=== PATIENT | female | born 1945 | race Asian ===

== ENCOUNTER 2019-04-01 18:14 | Emergency (ER) | payer MEDICARE, OTHER ==
[~2019-04-01] VITALS: Ht 170.2 cm; Wt 77.3 kg
[~2019-04-01 18:14] MED LIST: ACAR50TA11 PO; BENA10TA12 PO; GLIP10 PO; HYDR10TA31 PO; HYDR25TA PO; LABE100T8 PO; METF-960 PO; OMEP20 PO; SITA25 PO
[2019-04-01] MEDS ORDERED: ATOR10TA84 PO (18:19)
[2019-04-01 18:31] LABS: GLUCOSE,POINT OF CARE 233 MG/DL (70-110)
[2019-04-01] MEDS ORDERED: KETOROLAC TROMETHAMINE 30 MG/ML VIAL IM ONE (21:15)
[2019-04-01 22:00] VITALS: BP 128/70
== END 2019-04-01 22:20 | disposition home or self-care (01) ==
LOC: EMS 18:15
DX: M17.12 Unilateral primary osteoarthritis, left knee (principal); E11.9 Type 2 diabetes mellitus without complications; E78.00 Pure hypercholesterolemia, unspecified; I10 Essential (primary) hypertension; K21.9 Gastro-esophageal reflux disease without esophagitis; Z79.899 Other long term (current) drug therapy
CPT/HCPCS: 29505; 73562; 82962; 96372; 99283; J1885